=== PATIENT | male | born 1975 | race Two or more races ===

== ENCOUNTER 2019-10-07 19:28 | Emergency (ER) | payer MEDICARE, OTHER ==
[~2019-10-07] VITALS: Ht 170.2 cm; Wt 81.6 kg
[2019-10-07] MEDS ORDERED: KETOROLAC TROMETHAMINE INJ 60 MG/2 ML VIAL IM ONE ×2 (19:51→20:00)
[2019-10-07] MEDS ORDERED: LEVETIRACETAM (250 MG) 250 MG TABLET PO ONE ×2 (19:51→20:00)
--- NOTE | 2019-10-07 20:02 | NUR ---
BIB SELF C/O GEN BODY PAIN AND WEAKNESS FOR 2 DAYS PER RA, PT FELL FROM CHAIR. PT TAKES KEPPRA AND DILANTIN. PT AAOX3, VSS. RR EVEN & UNLABORED. DENIES CP, SOB, DIZZINESS, N/V @ THIS TIME. PT SEEN & EVAL'D BY DR. PALMER. PLACED ON SEIZURE PRECAUTION. MEDICATED ORDERED, PT TANGELA WELL. WILL CONT TO MONITOR.
--- NOTE | 2019-10-07 23:02 | NUR ---
Patient is resting comfortably in bed with eyes closed. Easily aroused. VSS
--- NOTE | 2019-10-08 02:15 | NUR ---
PT ACCEPTED TO [facility] ACCEPTED BY DR. PACKER/DR. GOULD NUMBER FOR REPORT: [phone] [facility] FOR TRANSPORTATION, ETA [phone]
--- NOTE | 2019-10-08 02:36 | NUR ---
Report given to Trinity NEWMAN for continuation of care.
--- NOTE | 2019-10-08 03:52 | NUR ---
[facility] at bedside [facility]
[2019-10-08 03:58] VITALS: BP 107/71
== END 2019-10-08 03:59 | disposition short-term general hospital (02) ==
LOC: ER 19:29
DX: G40.909 Epilepsy, unspecified, not intractable, without status epilepticus (principal); G89.29 Other chronic pain; J45.909 Unspecified asthma, uncomplicated; F17.200 Nicotine dependence, unspecified, uncomplicated; Z60.2 Problems related to living alone
CPT/HCPCS: 96372; 99285; J1885

== ENCOUNTER 2020-09-09 17:03 | Inpatient (IN) | payer MEDICARE, OTHER ==
[~2020-09-09] VITALS: Ht 170.2 cm; Wt 93.4 kg
[2020-09-09] MEDS ORDERED: LORAZEPAM INJ 2 MG/ML VIAL ONE (17:18)
[2020-09-09] MEDS ORDERED: SERT100T PO (17:19)
[2020-09-09] MEDS ORDERED: LORA2VIA11 IM (17:19)
[2020-09-09] MEDS ORDERED: BISA10SU11 RC (17:19)
[2020-09-09] MEDS ORDERED: LEVE1000 PO (17:19)
[2020-09-09] MEDS ORDERED: OLAN15TA3 PO (17:19)
[2020-09-09] MEDS ORDERED: METF-440 PO (17:19)
[2020-09-09] MEDS ORDERED: POTA10TA PO (17:19)
[2020-09-09] MEDS ORDERED: NA P133E RC (17:19)
[2020-09-09] MEDS ORDERED: HYDR50TA3 PO (17:19)
[2020-09-09] MEDS ORDERED: MAGN400O6 PO (17:19)
[2020-09-09] MEDS ORDERED: QUET400T PO (17:19)
[2020-09-09] MEDS ORDERED: ALBU18HF2 INH (17:19)
[2020-09-09] MEDS ORDERED: DIVA500T2 PO (17:19)
[2020-09-09] MEDS ORDERED: LORAZEPAM INJ 2 MG/ML VIAL IVP ONE (17:30)
[2020-09-09] MEDS ORDERED: LEVETIRACETAM (500MG) 500 MG in IV NS 0.9% 100 ML IV ONE (17:30)
[2020-09-09 17:32] LABS: BASOPHILS # (AUTO) 0.2 /CMM (0.0-0.2); BASOPHILS % (AUTO) 1.4 % (0.0-2.0); EOSINOPHILS % (AUTO) 3.5 % (0.0-6.0); HEMATOCRIT 43 % (39-51); HEMOGLOBIN 14.7 g/dL (13.5-17.5); LYMPHOCYTES # (AUTO) 2.9 /CMM (0.8-4.8); LYMPHOCYTES % (AUTO) 26.6 % (20.0-44.0); MEAN CORPUSCULAR HGB CONC 34 g/dl (31.0-36.0); MEAN CORPUSCULAR VOLUME 91 fL (80-96); MONOCYTES # (AUTO) 1.2 /CMM (0.1-1.30); MONOCYTES % (AUTO) 11.4 % (2.0-12.0); NEUTROPHILS # (AUTO) 6.2 /CMM (1.8-8.9); NEUTROPHILS % (AUTO) 57.1 % (43.0-81.0); PLATELET COUNT (AUTO) 273 /CMM (150-450); RED BLOOD CELL COUNT(AUTO) 4.75 MIL/uL (4.5-6.0); WHITE BLOOD COUNT (AUTO) 10.8 K/uL (4.3-11.0)
--- NOTE | 2020-09-09 17:47 | NUR ---
EDWARD FROM [facility] TO ER BED 7. AAOX4. NOT IN RESP DISTRESS, BREATHING EVEN AND UNLABORED. BROUGHT IN FOR X5 EPISODE OF SEIZURE. UPON REPORT FROM FACILTY EARLIER, PT HAS BEEN HAVING ATLEAST 2 EPISODE OF SEIZURE SINCE HE GOT ADMITTED AT THE FACILITY ON 09/04/20. PT WAS AWAKE, ALERT AND ORIENTED UPON PRESENTATION. PT REPORTS THAT HE IS AWARE AND FEELS THE AURA WHEN A SEIZURE IS COMING. EMS REPORT THAT THEY WITNESSED AN EPISODE OF FOCAL SEIZURE W/ MILD TONIC CLONIC WHICH ENDED QUICK.NO MED GIVEN TO PT BY EMS. WAS AT THE BEDSIDE FOR EVAL. ORDERS RECEIVED NOTED AND CARRIED OUT. EKG DONE AT BEDSIDE. PT IS CURRENTLY ON HIS WAY TO CT.
--- NOTE | 2020-09-09 17:49 | NUR ---
MOVE SHEET SUBMITTED AND CALLED FOR A TELE BED.
--- NOTE | 2020-09-09 17:52 | NUR ---
PT BACK FROM CT
[2020-09-09 18:20] LABS: CALCIUM, SERUM 9.4 mg/dL (8.5-10.1); CREATININE 1.3 mg/dL (0.6-1.3); POTASSIUM 3.5 mmol/L (3.5-5.1)
[2020-09-09 18:26] LABS: ALBUMIN 3.3 g/dL (3.4-5.0); BILIRUBIN,TOTAL 0.2 mg/dL (0.2-1.0); TOTAL PROTEIN, SERUM 7.7 g/dL (6.4-8.2)
--- NOTE | 2020-09-09 19:19 | NUR ---
[facility] CALLED WEAPONS ENGINEER PAGED.
--- NOTE | 2020-09-09 19:20 | NUR ---
REPORT GIVEN TO PATY BLAIR FOR KAUSHIK
[2020-09-09] MEDS ORDERED: HYDROCODONE/APAP 5/325MG TABLET PO PRN (20:00)
[2020-09-09] MEDS ORDERED: BISACODYL SUPP (10 MG) 10 MG/SUPP.RECT SUPP.RECT RC PRN (20:00)
[2020-09-09] MEDS ORDERED: NA PHOS,M-B/NA PHOS,DI-BA 1 EA ENEMA RC PRN (20:00)
[2020-09-09] MEDS ORDERED: MORPHINE SULFATE INJ 2 MG/ML DISP.SYRIN IV PRN (20:00)
[2020-09-09] MEDS ORDERED: ONDANSETRON HCL/PF 4 MG/2 ML VIAL IVP PRN (20:00)
[2020-09-09] MEDS ORDERED: ACETAMINOPHEN 325 MG TABLET PO PRN (20:00)
[2020-09-09] MEDS ORDERED: MAGNESIUM HYDROXIDE 30 ML UDC PO PRN (20:00)
[2020-09-09] MEDS ORDERED: ALBUTEROL SULFATE INH 18 GM HFA.AER.AD IH PRN (20:00)
--- NOTE | 2020-09-09 20:08 | NUR ---
PT TRANSPORTED TO UNIT ON [facility] WITH EMT AND RN AT BEDSIDE W/ ACLS PROTOCOL. NAD NOTED DURING TRANSPORT. PT AMBULATED FROM [place] TO BED ON [facility] W/O ASSIST.
[2020-09-09] MEDS: IV NS 0.9% 1,000 ML IV PRN (20:10)
--- NOTE | 2020-09-09 20:15 | NUR ---
RN ADMITTING NOTES PATIENT RECEIVED VIA GURNEY ACCOMPANIED BY ER STAFF. ABLE TO AMBULATE, A/O X 3. STABLE ON RA WITH BREATHING EVEN AND UNLABORED, NO SOB NOTED. NO SIGNS OF ACUTE DISTRESS. NO COMPLAINTS OF PAIN OR DISCOMFORT AT THE MOMENT. IV LOCATED R HAND #22 PATENT AND INTACT. BELONGINGS ACCOUNTED FOR. TELE MONITOR PLACED. SKIN ASSESSMENT DONE. PATIENT ORIENTED TO ROOM AND STAFF. SEIZURES PRECAUTIONS IN PLACE. SAFETY PRECAUTIONS IN PLACE WITH BED IN LOWEST POSITION, CALL LIGHT WITHIN REACH, BREAKS ON, SIDE RAILS UP. WILL CONTINUE TO MONITOR THROUGHOUT THE NIGHT.
[2020-09-09 20:26] VITALS: BP 144/81
[2020-09-09] MEDS: LEVETIRACETAM (250 MG) 250 MG TABLET PO SCH (21:04)
[2020-09-09] MEDS: DIVALPROEX SODIUM 500 MG TABLET.DR PO SCH (21:05)
[2020-09-09] MEDS: METFORMIN 500 MG TABLET PO SCH (21:05)
[2020-09-09] MEDS: QUETIAPINE FUMARATE 100 MG TABLET PO SCH (21:05)
[2020-09-09] MEDS: ENOXAPARIN SODIUM 40 MG/0.4 ML DISP.SYRIN SQ SCH (21:06)
[2020-09-10] VITALS: BP 124/62
[2020-09-10 04:00] VITALS: BP 110/69
--- NOTE | 2020-09-10 06:41 | NUR ---
RN CLOSING NOTES PATIENT IN BED RESTING, A/O X 4. STABLE ON RA WITH BREATHING EVEN AND UNLABORED, NO SOB NOTED. NO SIGNS OF ACUTE DISTRESS. NO COMPLAINTS OF PAIN OR DISCOMFORT AT THE MOMENT. TELE MONITOR READING SR. SEIZURES PRECAUTIONS IN PLACE. SAFETY PRECAUTIONS IN PLACE WITH BED IN LOWEST POSITION, CALL LIGHT WITHIN REACH, BREAKS ON, SIDE RAILS UP. WILL ENDORSE TO ONCOMING SHIFT ABOUT KAUSHIK.
[2020-09-10 06:44] LABS: BASOPHILS # (AUTO) 0.1 /CMM (0.0-0.2); BASOPHILS % (AUTO) 0.9 % (0.0-2.0); EOSINOPHILS % (AUTO) 3.7 % (0.0-6.0); HEMATOCRIT 41 % (39-51); LYMPHOCYTES # (AUTO) 3.2 /CMM (0.8-4.8); LYMPHOCYTES % (AUTO) 31.6 % (20.0-44.0); MEAN CORPUSCULAR HGB CONC 34 g/dl (31.0-36.0); MEAN CORPUSCULAR VOLUME 90 fL (80-96); MONOCYTES # (AUTO) 1.4 /CMM (0.1-1.30); MONOCYTES % (AUTO) 13.5 % (2.0-12.0); NEUTROPHILS % (AUTO) 50.3 % (43.0-81.0); PLATELET COUNT (AUTO) 212 /CMM (150-450); RED BLOOD CELL COUNT(AUTO) 4.56 MIL/uL (4.5-6.0)
[2020-09-10 07:06] LABS: ALBUMIN 2.9 g/dL (3.4-5.0); BILIRUBIN,TOTAL 0.2 mg/dL (0.2-1.0); CALCIUM, SERUM 8.8 mg/dL (8.5-10.1); CREATININE 1.2 mg/dL (0.6-1.3); MAGNESIUM 2.1 mg/dL (1.8-2.4); PHOSPHORUS 4.4 mg/dL (2.5-4.9); POTASSIUM 3.5 mmol/L (3.5-5.1); TOTAL PROTEIN, SERUM 6.8 g/dL (6.4-8.2)
[2020-09-10 07:15] LABS: THYROID STIMULATING HORMONE 4.527 uIU/mL (0.358-3.74)
--- NOTE | 2020-09-10 07:37 | NUR ---
TELE/RN OPENING NOTES RECEIVED PATENT ON BED AWAKE ALERT AND ORIENTED X 3. PATIENT IN NO APPARENT RESPIRATORY DISTRESS NOTED. PATIENT NO SIGN AND SYMPTOM PAIN AT THIS TIME. PATIENT IN TELE MONITOR IN PLACE READING SR 86 BPM. WILL CONTINUE TO MONITOR.
[2020-09-10 08:00] VITALS: BP 110/90
[2020-09-10] MEDS: SERTRALINE HCL 50 MG TABLET PO SCH (08:41)
[2020-09-10] MEDS: DIVALPROEX SODIUM 500 MG TABLET.DR PO SCH ×2 (08:41→20:39)
[2020-09-10] MEDS: POTASSIUM CHLORIDE 10 MEQ TABLET.SA PO SCH (08:41)
[2020-09-10] MEDS: METFORMIN 500 MG TABLET PO SCH ×2 (08:41→20:39)
[2020-09-10] MEDS: HYDROCHLOROTHIAZIDE 25 MG TABLET PO SCH (08:47)
--- NOTE | 2020-09-10 08:55 | NUR ---
TELE/RN NOTES BP 110/90 P 65 HYDRODIURIL 50MG 2 TABS P.O. IS WITH HELD WON MOHR WOOD MODEL BUILDER IS AWARE.
[2020-09-10] MEDS: LEVETIRACETAM (250 MG) 250 MG TABLET PO SCH ×2 (09:29→20:40)
[2020-09-10] MEDS: OLANZAPINE 10 MG TABLET PO SCH ×2 (09:30→20:40)
--- NOTE | 2020-09-10 10:24 | NUR ---
TELE/RN NOTES PATIENT REFUSED TO PUT ON DVT PUMP. EXPLAINED THE RISK AND BENEFITS. WILL CONTINUE TO MONITOR.
[2020-09-10 16:00] VITALS: BP 103/52
[2020-09-10] MEDS: IV NS 0.9% 1,000 ML IV PRN ×2 (16:53→21:05)
--- NOTE | 2020-09-10 19:30 | NUR ---
PATIENT RESOURCE COORDINATOR NOTES RECEIVED TRYING TO GET OUT OF THE ROOM.HE WAS INFORMED THAT ITS CHANGE OF SHIFT,THAT HE IS NEGATIVE FOR COVID AND NEEDS TO BE TRANSFER TO NO COVID UNIT,A/O X3-4,FOLLOW INSTRUCTION.SALINE LOCK RIGHT UPPER ARM INTACT AND PATENT.CALL LIGHT IN REACH,NEEDS ANTICIPATED.
--- NOTE | 2020-09-10 19:33 | NUR ---
TELE/RN CLOSING NOTES PATIENT IS ON BED. ALERT AND ORIENTED X3. PATIENT IN NO APPARENT RESPIRATORY DISTRESS NOTED. PATIENT DENIES PAIN AT THIS TIME. TELE MONITOR WAS IN PLACE READING SB-SR WITH PAC, PVC 54-80 BPM. IV ACCESS AT RIGHT UPPER FOREARM # 18 WITH IV FLUID OF NS 1L ON AND INFUSING WELL. SEEN AND EXAMINED BY MD WITH ORDERS MADE AND CARRIED OUT. ALL DUE MEDICATIONS WAS GIVEN. SAFETY PRECAUTION WAS IN PLACED. BED IN LOWEST POSITION AND LOCKED. SIDE RAILS UP X2. CALL LIGHT WITHIN REACH. WILL ENDORSED TO FAMILY MEDICINE CHAIR FOR KAUSHIK. Addendum: 09/10/20 at 1938 by TONY VARGAS RN ERROR
--- NOTE | 2020-09-10 19:38 | NUR ---
TELE/RN CLOSING NOTES PATIENT IS ON BED. ALERT AND ORIENTED X 1. PATIENT IN NO APPARENT RESPIRATORY DISTRESS NOTED AT THIS TIME. TELE MONITOR WAS IN PLACE READING SR 68-90 BPM. IV ACCESS AT RIGHT FOREARM # 18G WITH IV FLUID OF NS 1L AT 75ML/HR ON AND INFUSING WELL. SEEN AND EXAMINED BY MD WITH ORDERS MADE AND CARRIED OUT. ALL DUE MEDICATIONS WAS GIVEN. SAFETY PRECAUTION WAS IN PLACED. BED IN LOWEST POSITION AND LOCKED. SIDE RAILS UP X2. CALL LIGHT WITHIN REACH. WILL ENDORSED TO AN/SYQ 13 NAV/C2 OPERATOR FOR KAUSHIK.
--- NOTE | 2020-09-10 19:40 | NUR ---
SMALL BUSINESS DIRECTOR NOTES TRANSFERRED TO [address] [place] [address],ROOM 323-2 VIA WHEELCHAIR ,IN STABLE CONDITION.REPOST GIVEN TO MUKESH NEWMAN.
--- NOTE | 2020-09-10 19:45 | NUR ---
PAPER CONE MACHINE TENDER NOTES RECEIVED PATIENT FROM [facility] VIA WHEEL CHAIR SAFELY TRANSFERRED TO BED, AWAKE ALERT AND ORIENTED X4, RESPIRATIONS EVEN AND UNLABORED WITH EQUAL RISE AND FALL OF CHEST, DENIES ANY PAIN OR DISCOMFORT AT THIS TIME, PLACE ON VP DIGITAL MARKETING SR 72, BELONGINGS WITH PATIENT, RIGHT UPPER ARM MIDLINE INTACT, DRESSING IS C/D/I. SEIZURE PRECAUTIONS RENDERED. ORIENTED TO STAFF AND CALL LIGHT AND KEPT WITHIN REACH, ALL NEEDS ATTENDED WILL CONTINUE TO MONITOR AND ATTEND TO NEEDS.
[2020-09-10 20:00] VITALS: BP 106/68
[2020-09-10] MEDS: ENOXAPARIN SODIUM 40 MG/0.4 ML DISP.SYRIN SQ SCH (20:44)
[2020-09-10] MEDS: QUETIAPINE FUMARATE 100 MG TABLET PO SCH (21:04)
[2020-09-10] MEDS: ZOLPIDEM TARTRATE 5 MG TABLET PO PRN (22:20)
--- NOTE | 2020-09-10 22:20 | NUR ---
DRIVER MATERIAL HANDLER NOTES PATIENT REQUESTED FOR SLEEP MEDICATION , SHANE SINGERN OFFERED, PATIENT AGREED AND GIVEN ORDERED, WILL CONTINUE TO MONITOR FOR EFFECTIVENESS.
[2020-09-11] VITALS (7 sets, daily range): BP systolic 59–109; BP diastolic 56–65
[2020-09-11 06:26] LABS: BILIRUBIN,URINE NEGATIVE (NEGATIVE); BLOOD, URINE NEGATIVE Ery/uL (NEGATIVE); COLOR,URINE YELLOW (YELLOW); LEUKOCYTE ESTERASE ,URINE NEGATIVE (NEGATIVE); NITRITE, URINE NEGATIVE (NEGATIVE); PROTEIN,URINE NEGATIVE (NEGATIVE); UGLUCOSE NEGATIVE (NEGATIVE); UROBILINOGEN,URINE 0.2 EU/dL (0.2)
[2020-09-11 06:31] LABS: BASOPHILS # (AUTO) 0.1 /CMM (0.0-0.2); BASOPHILS % (AUTO) 1.1 % (0.0-2.0); HEMATOCRIT 41 % (39-51); HEMOGLOBIN 13.7 g/dL (13.5-17.5); LYMPHOCYTES # (AUTO) 3.1 /CMM (0.8-4.8); LYMPHOCYTES % (AUTO) 32.5 % (20.0-44.0); MEAN CORPUSCULAR HGB CONC 34 g/dl (31.0-36.0); MEAN CORPUSCULAR VOLUME 90 fL (80-96); MONOCYTES # (AUTO) 1.2 /CMM (0.1-1.30); MONOCYTES % (AUTO) 12.6 % (2.0-12.0); NEUTROPHILS # (AUTO) 4.6 /CMM (1.8-8.9); NEUTROPHILS % (AUTO) 48.8 % (43.0-81.0); PLATELET COUNT (AUTO) 195 /CMM (150-450); RED BLOOD CELL COUNT(AUTO) 4.49 MIL/uL (4.5-6.0); WHITE BLOOD COUNT (AUTO) 9.5 K/uL (4.3-11.0)
[2020-09-11 06:36] LABS: CALCIUM, SERUM 8.6 mg/dL (8.5-10.1); CREATININE 1.2 mg/dL (0.6-1.3); POTASSIUM 3.5 mmol/L (3.5-5.1)
--- NOTE | 2020-09-11 06:55 | NUR ---
TORCH BURNER CLOSING NOTES PATIENT IN BED AWAKE ALERT AND ORIENTED X4, RESPIRATIONS EVEN AND UNLABORED WITH EQUAL RISE AND FALL OF CHEST, DENIES ANY PAIN OR DISCOMFORT AT THIS TIME, PLACE ON ADVERTISING DISPLAY ROTATOR SR 64, RIGHT UPPER ARM MIDLINE INTACT, DRESSING IS C/D/I. SEIZURE PRECAUTIONS RENDERED. CALL LIGHT KEPT WITHIN REACH, ALL NEEDS ATTENDED WILL CONTINUE TO MONITOR AND ATTEND TO NEEDS AND ENDORSE TO NEXT SHIFT REMAINS STABLE AND COMFORTABLE AT THIS TIME.
--- NOTE | 2020-09-11 07:39 | NUR ---
RN NOTES RECEIVED PATIENT IN BED RESTING COMFORTABLY IN MODERATE HIGH BACK REST. A/O X4, RESPIRATIONS EVEN AND UNLABORED WITH EQUAL RISE AND FALL OF CHEST, DENIES ANY PAIN OR DISCOMFORT AT THIS TIME, ON EXTERNAL GAS MAIN FITTER HELPER SR 60'S, RIGHT UPPER ARM MIDLINE INTACT, DRESSING IS C/D/I. SEIZURE PRECAUTIONS MAINTAINED. SAFETY MEASURES IN PLACE, BED IN LOWEST LOCKED POSITION WITH PADDED SIDE RAILS UP X2. CALL LIGHT KEPT WITHIN REACH, WILL CONTINUE TO MONITOR.
[2020-09-11] MEDS: DIVALPROEX SODIUM 500 MG TABLET.DR PO SCH ×2 (08:32→21:21)
[2020-09-11] MEDS: LEVETIRACETAM (250 MG) 250 MG TABLET PO SCH ×2 (08:32→21:22)
[2020-09-11] MEDS: METFORMIN 500 MG TABLET PO SCH ×2 (08:32→21:21)
[2020-09-11] MEDS: SERTRALINE HCL 50 MG TABLET PO SCH (08:33)
[2020-09-11] MEDS: POTASSIUM CHLORIDE 10 MEQ TABLET.SA PO SCH (08:33)
[2020-09-11] MEDS: OLANZAPINE 10 MG TABLET PO SCH ×2 (08:33→21:22)
[2020-09-11] MEDS: HYDROCHLOROTHIAZIDE 25 MG TABLET PO SCH (08:43)
[2020-09-11] MEDS: MAG HYDROX/AL HYDROX/SIMETH 30 ML UDC PO PRN (10:49)
--- NOTE | 2020-09-11 18:28 | NUR ---
RN NOTES PATIENT IN BED RESTING COMFORTABLY IN MODERATE HIGH BACK REST. A/O X4, RESPIRATIONS EVEN AND UNLABORED WITH EQUAL RISE AND FALL OF CHEST, DENIES ANY PAIN OR DISCOMFORT. ON EXTERNAL PUNCHING MACHINE OPERATOR SR, RIGHT UPPER ARM MIDLINE INTACT, DRESSING IS C/D/I. WITH NS RUNNING @75ML/HR, SEIZURE PRECAUTIONS MAINTAINED. SAFETY MEASURES IN PLACE, BED IN LOWEST LOCKED POSITION WITH PADDED SIDE RAILS UP X2. CALL LIGHT KEPT WITHIN REACH, WILL ENDORSE TO EXPERIENCE PLANNING STRATEGIST NURSE FOR KAUSHIK.
[2020-09-11] MEDS: LORAZEPAM INJ 2 MG/ML VIAL IV PRN (18:34)
--- NOTE | 2020-09-11 19:05 | NUR ---
DAIRY MANAGER OPENING NOTES RECEIVED PATIENT IN BED AWAKE ALERT AND ORIENTED X4, RESPIRATIONS EVEN AND UNLABORED WITH EQUAL RISE AND FALL OF CHEST, DENIES ANY PAIN OR DISCOMFORT AT THIS TIME, ON CONCRETE PUMP OPERATOR HELPER SR 70, RIGHT UPPER ARM MIDLINE INTACT, DRESSING IS C/D/I. IVF RUNNING ORDERED, SEIZURE PRECAUTIONS MAINTAINED. ORIENTED TO CALL LIGHT, KEPT WITHIN REACH, SAFETY PRECAUTIONS RENDERED LOW BED AND LOCKED, ALL NEEDS ATTENDED WILL CONTINUE TO MONITOR AND ATTEND TO NEEDS .REMAINS STABLE AND COMFORTABLE AT THIS TIME.
[2020-09-11] MEDS: QUETIAPINE FUMARATE 100 MG TABLET PO SCH (21:22)
[2020-09-11] MEDS: ENOXAPARIN SODIUM 40 MG/0.4 ML DISP.SYRIN SQ SCH (21:26)
[2020-09-12] VITALS (7 sets, daily range): BP systolic 101–125; BP diastolic 61–70
[2020-09-12] MEDS: ZOLPIDEM TARTRATE 5 MG TABLET PO PRN (01:03)
--- NOTE | 2020-09-12 01:04 | NUR ---
corn sheller notes patient requested for sleep medication , prn michele offered patient agreed. prn given as ordered will continue to monitor for effectiveness.
[2020-09-12] MEDS: IV NS 0.9% 1,000 ML IV PRN (03:43)
--- NOTE | 2020-09-12 06:27 | NUR ---
SHOTBLASTER CLOSING NOTES PATIENT IN BED AWAKE ALERT AND ORIENTED X4, RESPIRATIONS EVEN AND UNLABORED WITH EQUAL RISE AND FALL OF CHEST, DENIES ANY PAIN OR DISCOMFORT AT THIS TIME, ON RUG CLEANER SR 64, RIGHT UPPER ARM MIDLINE INTACT, DRESSING IS C/D/I. IVF RUNNING ORDERED, SEIZURE PRECAUTIONS MAINTAINED.CALL LIGHT KEPT WITHIN REACH, SAFETY PRECAUTIONS RENDERED LOW BED AND LOCKED, ALL NEEDS ATTENDED WILL CONTINUE TO MONITOR AND ATTEND TO NEEDS .REMAINS STABLE AND COMFORTABLE AT THIS TIME, WILL ENDORSE TO NEXT SHIFT.
[2020-09-12 06:42] LABS: BASOPHILS # (AUTO) 0.1 /CMM (0.0-0.2); BASOPHILS % (AUTO) 1.2 % (0.0-2.0); EOSINOPHILS % (AUTO) 5.3 % (0.0-6.0); HEMATOCRIT 40 % (39-51); HEMOGLOBIN 13.6 g/dL (13.5-17.5); LYMPHOCYTES % (AUTO) 35.8 % (20.0-44.0); MEAN CORPUSCULAR HGB CONC 34 g/dl (31.0-36.0); MEAN CORPUSCULAR VOLUME 90 fL (80-96); MONOCYTES % (AUTO) 12.4 % (2.0-12.0); NEUTROPHILS # (AUTO) 3.8 /CMM (1.8-8.9); NEUTROPHILS % (AUTO) 45.3 % (43.0-81.0); PLATELET COUNT (AUTO) 192 /CMM (150-450); RED BLOOD CELL COUNT(AUTO) 4.42 MIL/uL (4.5-6.0); WHITE BLOOD COUNT (AUTO) 8.4 K/uL (4.3-11.0)
[2020-09-12 07:04] LABS: CALCIUM, SERUM 8.2 mg/dL (8.5-10.1); MAGNESIUM 2.2 mg/dL (1.8-2.4); PHOSPHORUS 3.8 mg/dL (2.5-4.9); POTASSIUM 3.9 mmol/L (3.5-5.1)
--- NOTE | 2020-09-12 07:10 | NUR ---
MAGNETOMETER OPERATOR NOTES PATIENT IN BED ALERT ORIENTED X 4 . NO ACUTE DISTRESS NOTED. BREATHING UNLABORED. NO SOB NOTED .IV ACCESS PATENT AND INTACT, NO REDNESS, NO SWELLING NOTED. SAFETY MEASURES IN PLACE. CALL LIGHT WITHIN REACH. WILL CONTINUE TO MONITOR ACCORDINGLY.
[2020-09-12] MEDS: HYDROCHLOROTHIAZIDE 25 MG TABLET PO SCH (09:00)
[2020-09-12] MEDS: LEVETIRACETAM (250 MG) 250 MG TABLET PO SCH ×2 (09:02→21:43)
[2020-09-12] MEDS: POTASSIUM CHLORIDE 10 MEQ TABLET.SA PO SCH (09:03)
[2020-09-12] MEDS: SERTRALINE HCL 50 MG TABLET PO SCH (09:03)
[2020-09-12] MEDS: OLANZAPINE 10 MG TABLET PO SCH ×2 (09:03→21:43)
[2020-09-12] MEDS: METFORMIN 500 MG TABLET PO SCH ×2 (09:03→21:42)
[2020-09-12] MEDS: DIVALPROEX SODIUM 500 MG TABLET.DR PO SCH ×2 (09:03→21:42)
[2020-09-12] MEDS: MAG HYDROX/AL HYDROX/SIMETH 30 ML UDC PO PRN (09:49)
[2020-09-12] MEDS: LORAZEPAM INJ 2 MG/ML VIAL IV PRN (15:43)
--- NOTE | 2020-09-12 19:00 | NUR ---
RETAIL BEAUTY SPECIALIST NOTES PATIENT IN BED ALERT ORIENTED X 4 . NO ACUTE DISTRESS NOTED. BREATHING UNLABORED. NO SOB NOTED .IV ACCESS PATENT AND INTACT, NO REDNESS, NO SWELLING NOTED. NEEDS ATTENDED AND ANTICIPATED. SAFETY MEASURES IN PLACE. CALL LIGHT WITHIN REACH. WILL ENDORSE TO NIGHT NURSE FOR CONTINUITY OF CARE.
[2020-09-12] MEDS: QUETIAPINE FUMARATE 100 MG TABLET PO SCH (21:44)
[2020-09-12] MEDS: ENOXAPARIN SODIUM 40 MG/0.4 ML DISP.SYRIN SQ SCH (21:48)
[2020-09-13] VITALS: BP 109/63
[2020-09-13 04:19] VITALS: BP 114/64
--- NOTE | 2020-09-13 07:44 | NUR ---
MS/RN OPENING NOTE PATIENT WAS RECEIVED FROM DIVERSITY INTERN NURSE. PATIENT IS A/O X3, VS WITHIN NORMAL RANGE. NO ACUTE DISTRESS NOTED. PATIENT ON ROOM AIR TOLERATING WELL. SAFETY MEASURES IN PLACE, BED SETTING IN LOWEST POSITION AND LOCKED. WILL CONTINUE TO MONITOR AND ENSURE SAFETY.
[2020-09-13 08:00] VITALS: BP 113/71
[2020-09-13] MEDS: METFORMIN 500 MG TABLET PO SCH (08:37)
[2020-09-13] MEDS: POTASSIUM CHLORIDE 10 MEQ TABLET.SA PO SCH (08:38)
[2020-09-13] MEDS: DIVALPROEX SODIUM 500 MG TABLET.DR PO SCH (08:38)
[2020-09-13] MEDS: SERTRALINE HCL 50 MG TABLET PO SCH (08:38)
[2020-09-13] MEDS: OLANZAPINE 10 MG TABLET PO SCH (08:39)
[2020-09-13] MEDS: HYDROCHLOROTHIAZIDE 25 MG TABLET PO SCH (08:40)
[2020-09-13] MEDS: LEVETIRACETAM (250 MG) 250 MG TABLET PO SCH (08:41)
[2020-09-13 08:54] LABS: BASOPHILS # (AUTO) 0.1 /CMM (0.0-0.2); EOSINOPHILS % (AUTO) 3.9 % (0.0-6.0); HEMATOCRIT 40 % (39-51); HEMOGLOBIN 13.7 g/dL (13.5-17.5); LYMPHOCYTES # (AUTO) 2.2 /CMM (0.8-4.8); LYMPHOCYTES % (AUTO) 25.4 % (20.0-44.0); MEAN CORPUSCULAR HGB CONC 34 g/dl (31.0-36.0); MEAN CORPUSCULAR VOLUME 90 fL (80-96); MONOCYTES # (AUTO) 0.9 /CMM (0.1-1.30); MONOCYTES % (AUTO) 10.5 % (2.0-12.0); NEUTROPHILS # (AUTO) 5.1 /CMM (1.8-8.9); NEUTROPHILS % (AUTO) 59.2 % (43.0-81.0); PLATELET COUNT (AUTO) 174 /CMM (150-450); RED BLOOD CELL COUNT(AUTO) 4.47 MIL/uL (4.5-6.0); WHITE BLOOD COUNT (AUTO) 8.7 K/uL (4.3-11.0)
--- NOTE | 2020-09-13 09:00 | NUR ---
MS/RN Medications Morning medications administered as ordered, no difficulty swallowing.
[2020-09-13 09:04] LABS: CALCIUM, SERUM 8.3 mg/dL (8.5-10.1); CREATININE 1.1 mg/dL (0.6-1.3); MAGNESIUM 2.1 mg/dL (1.8-2.4); PHOSPHORUS 3.4 mg/dL (2.5-4.9); POTASSIUM 3.7 mmol/L (3.5-5.1)
[2020-09-13] MEDS ORDERED: LEVE250T2 PO (11:40)
--- NOTE | 2020-09-13 11:50 | NUR ---
MS/RN No seizure No seizure activity noted this morning. Will continue to monitor and ensure safety.
--- NOTE | 2020-09-13 12:00 | NUR ---
MS/RN S/B Arnold SATELLITE INSTRUCTION FACILITATOR Seen by SATELLITE INSTRUCTION FACILITATOR - patient to be discharged to SNF later today. Needs to follow up at [facility] epilepsy clinic as outpatient. Will br followed in facility by Dr Mcduffie and Dr Jefferson.
--- NOTE | 2020-09-13 13:17 | NUR ---
MS/barrel repairer paperwork Exit care prepared, chart copied ready for discharge later today.
--- NOTE | 2020-09-13 14:14 | NUR ---
MS/BATCH STILL OPERATOR REPORT DISCHARGE REPORT GIVEN TO SAMREEN FROM [facility]. PATIENT WILL BE GOING TO ROOM 5A VIA AMBULANCE.
[2020-09-13] MEDS: MAG HYDROX/AL HYDROX/SIMETH 30 ML UDC PO PRN (14:47)
[2020-09-13 16:00] VITALS: BP 121/71
--- NOTE | 2020-09-13 18:19 | NUR ---
MS/IV RN PATIENT WAS DISCHARGED TO [facility] ROOM VIA PARAMEDICS IN STABLE CONDITION. ALL PERSONAL BELONGINGS WITH PATIENT AND SIGNED FOR ON BELONGINGS LIST. MAYI MIDLINE REMOVED, PRESSURE DRESSING APPLIED. NAME BANDS REMOVED. ALL DISCHARGE MEDICATION EXPLAINED TO PATIENT AND REPORT GIVEN TO NURSE IN [facility]. TRANSPORT HERE TO [facility] SERVICE ATTENDANT PATIENT, REPORT GIVEN TO PARAMEDICS, PATIENT LEFT THE FLOOR IN STABLE CONDITION.
== END 2020-09-13 18:20 | DRG 100 ==
LOC: ER 17:11 → TELE2 18:24 → TELE 09-10 19:48
PROVIDERS: ADMIT Nurse Practitioner Acute Care; ATTEND Nurse Practitioner Acute Care
PROC: 05H933Z Insertion of Infusion Device into Right Brachial Vein, Percutaneous Approach (ICD-10-PCS; principal; 2020-09-10)
DX: G40.909 Epilepsy, unspecified, not intractable, without status epilepticus (principal); G93.41 Metabolic encephalopathy; E44.0 Moderate protein-calorie malnutrition; D68.59 Other primary thrombophilia; F25.9 Schizoaffective disorder, unspecified; J44.9 Chronic obstructive pulmonary disease, unspecified; E78.5 Hyperlipidemia, unspecified; F32.9 Major depressive disorder, single episode, unspecified; Z68.33 Body mass index [BMI] 33.0-33.9, adult; K21.9 Gastro-esophageal reflux disease without esophagitis; W34.00XS Accidental discharge from unspecified firearms or gun, sequela; E11.9 Type 2 diabetes mellitus without complications; Z79.51 Long term (current) use of inhaled steroids; Z79.84 Long term (current) use of oral hypoglycemic drugs; Z79.899 Other long term (current) drug therapy; E66.9 Obesity, unspecified; Z74.09 Other reduced mobility; R79.89 Other specified abnormal findings of blood chemistry
CPT/HCPCS: 36415; 70450-TC; 71045-TC; 80048-TC; 80053-TC; 80061-TC; 80076-TC; 80164-TC; 81001; 83735-TC; 84100-TC; 84439-TC; 84443-TC; 85025-TC; 85730-TC; 87081-TC; G0378; J1650; J1953; J2060; J7030; U0003

== ENCOUNTER 2020-09-28 16:24 | Emergency (ER) | payer MEDICARE, OTHER ==
[~2020-09-28] VITALS: Ht 170.2 cm; Wt 102.1 kg
[~2020-09-28 16:24] MED LIST: ALBU18HF2 INH; BISA10SU11 RC; DIVA500T2 PO; HYDR50TA3 PO; LEVE1000 PO; LORA2VIA11 IM; MAGN400O6 PO; METF-440 PO; NA P133E RC; OLAN15TA3 PO; POTA10TA PO; QUET400T PO; SERT100T PO
--- NOTE | 2020-09-28 16:56 | NUR ---
Patient awake alert Siezure precaution padded side rails, suctioned set up standby ,salined locked Left wrist ,ekg ,hooked in the monitor called Pharmacy for Med .
[2020-09-28] MEDS ORDERED: IV NS 0.9% 500 ML BAG IV ONE (17:00)
[2020-09-28 17:07] LABS: BILIRUBIN,URINE Negative (NEGATIVE); BLOOD, URINE Trace-intact Ery/uL (NEGATIVE); COLOR,URINE YELLOW (YELLOW); LEUKOCYTE ESTERASE ,URINE Negative (NEGATIVE); NITRITE, URINE Negative (NEGATIVE); PH,URINE 5.5 (5.0-8.0); PROTEIN,URINE Negative (NEGATIVE); UGLUCOSE Negative (NEGATIVE); UROBILINOGEN,URINE 0.2 EU/dL (0.2)
[2020-09-28] MEDS: VALPROATE 500 MG in IV D5W 100 ML IV SCH ×2 (17:11→17:44)
[2020-09-28 17:23] LABS: BASOPHILS # (AUTO) 0.1 /CMM (0.0-0.2); BASOPHILS % (AUTO) 1.4 % (0.0-2.0); EOSINOPHILS % (AUTO) 6.2 % (0.0-6.0); HEMATOCRIT 44 % (39-51); HEMOGLOBIN 14.9 g/dL (13.5-17.5); LYMPHOCYTES % (AUTO) 33.1 % (20.0-44.0); MEAN CORPUSCULAR HGB CONC 34 g/dl (31.0-36.0); MEAN CORPUSCULAR VOLUME 91 fL (80-96); MONOCYTES # (AUTO) 1.2 /CMM (0.1-1.30); MONOCYTES % (AUTO) 13.4 % (2.0-12.0); NEUTROPHILS # (AUTO) 4.2 /CMM (1.8-8.9); NEUTROPHILS % (AUTO) 45.9 % (43.0-81.0); PLATELET COUNT (AUTO) 213 /CMM (150-450); RED BLOOD CELL COUNT(AUTO) 4.89 MIL/uL (4.5-6.0); WHITE BLOOD COUNT (AUTO) 9.1 K/uL (4.3-11.0)
[2020-09-28 17:29] LABS: ALBUMIN 3.3 g/dL (3.4-5.0); BILIRUBIN,DIRECT 0.1 mg/dL (0.0-0.2); BILIRUBIN,TOTAL 0.1 mg/dL (0.2-1.0); TOTAL PROTEIN, SERUM 7.3 g/dL (6.4-8.2)
[2020-09-28 17:33] LABS: BACTERIA,URINE Few /HPF (None Seen); SQUAMOUS EPITHELIAL CELL,UR Few /HPF (None Seen); WBC,URINE 0-2 /HPF (0-3)
[2020-09-28] MEDS ORDERED: TRAZ-182 PO (17:47)
[2020-09-28] MEDS ORDERED: MELA3TAB41 PO (17:47)
[2020-09-28] MEDS ORDERED: MIRT15TA7 PO (17:47)
[2020-09-28] MEDS ORDERED: DIVA-78 PO (17:47)
[2020-09-28] MEDS ORDERED: LEVO50TA8 PO (17:47)
[2020-09-28] MEDS ORDERED: ATOR10TA PO (17:47)
[2020-09-28] MEDS ORDERED: OLAN5TAB3 PO (17:47)
[2020-09-28] MEDS ORDERED: OMEP20CA15 PO (17:47)
[2020-09-28] MEDS ORDERED: LORA-259 PO (17:48)
--- NOTE | 2020-09-28 19:01 | NUR ---
CALLED TRANSPORT [facility] 90 MINS TRIP #[id number]
--- NOTE | 2020-09-28 19:17 | NUR ---
TOOK OVER PT CARE. PT IN BED RESTING COMFORTABLY. PER PREVIOUS RN, PT WILL BE DISCHARGED BACK TO THE FACILITY. VSS. WILL CONTINUE TO MONITOR.
--- NOTE | 2020-09-28 20:04 | NUR ---
BED ASSIGNMENT AT [address]
--- NOTE | 2020-09-28 20:10 | NUR ---
REPORT GIVEN TO [facility].
--- NOTE | 2020-09-28 20:18 | NUR ---
IV removed. Catheter intact and site benign. Pressure and 4x4 applied to site. No bleeding noted.
--- NOTE | 2020-09-28 20:52 | NUR ---
REPORT GIVEN TO AMBUL UNIT 114 FOR TRANSPORTATION KAUSHIK. PT TRANSFERRED TO [facility] IN STABLE CONDITION
[2020-09-28 20:54] VITALS: BP 108/64
--- NOTE | 2020-09-28 20:57 | NUR ---
Patient discharged in stable condition. Written and verbal after care instructions given. Patient verbalizes understanding of instruction and rx.
== END 2020-09-28 20:57 | disposition short-term general hospital (02) ==
LOC: ER 16:34
DX: G40.909 Epilepsy, unspecified, not intractable, without status epilepticus (principal); K59.00 Constipation, unspecified; R10.9 Unspecified abdominal pain; R16.0 Hepatomegaly, not elsewhere classified; R31.9 Hematuria, unspecified; R82.4 Acetonuria; E66.01 Morbid (severe) obesity due to excess calories; E11.9 Type 2 diabetes mellitus without complications; I10 Essential (primary) hypertension; E03.9 Hypothyroidism, unspecified; K21.9 Gastro-esophageal reflux disease without esophagitis; G47.00 Insomnia, unspecified; J44.9 Chronic obstructive pulmonary disease, unspecified; Z86.19 Personal history of other infectious and parasitic diseases; Z68.35 Body mass index [BMI] 35.0-35.9, adult; Z51.81 Encounter for therapeutic drug level monitoring; Z90.49 Acquired absence of other specified parts of digestive tract; Z88.6 Allergy status to analgesic agent; Z88.8 Allergy status to other drugs, medicaments and biological substances; Z91.013 Allergy to seafood; Z60.2 Problems related to living alone; Z79.899 Other long term (current) drug therapy; Z79.84 Long term (current) use of oral hypoglycemic drugs
CPT/HCPCS: 36415; 71045; 74018; 80076; 80164; 81001; 82962; 83690; 85025; 93005; 96365; 99285; J3490; J7040; J7060